=== PATIENT | male | born 1980 | race Caucasian/White ===

== ENCOUNTER 2017-09-13 10:54 | Inpatient (IN) ==
--- NOTE | 2017-09-13 10:34 | Emergency Department Note ---
Disposition Clinical Impression: GI bleed Qualifiers: GI bleed type/associated pathology: unspecified gastrointestinal hemorrhage type Qualified Code(s): K92.2 - Gastrointestinal hemorrhage, unspecified Hematemesis Qualifiers: Nausea presence: with nausea Qualified Code(s): K92.0 - Hematemesis Disposition: Admitted As Inpatient Condition: Fair Time of Disposition: 11:26 GI Bleed HPI - General Chief complaint: ED GI Bleed Stated complaint: vomiting blood, dizzy, black stool Source: patient, family, EMS Mode of arrival: EMS Nursing Notes Reviewed: Yes Vital Signs Reviewed: Yes - History of Present Illness HPI Narrative: 37-year-old male arrives to the emergency department by EMS for evaluation of blood streaked emesis 3 episodes since yesterday evening. The patient's states that the patient called her at work because he was feeling ill. She states that she arrived to the house to find him lying on the bathroom floor. She states she helped him up to the toilet, and went to get him some clothes. When she returned, the patient was again on the floor. The patient complains of being extremely diaphoretic, epigastric abdominal pain, nausea, and intermittent episodes of substernal/epigastric pain/pressure. His states that he had a Logan fundoplication performed 2 months ago for a hiatal hernia repair. She states that he has had follow-up regarding this and has been told that "everything is going fine". The patient's states that he also had an ablation performed on August 31 for an ablation of varices. He denies any cough or hemoptysis. Pt Subjective Complaint: blood streaked emesis Onset (ago): day(s) (Since yesterday) Number of episodes: 3 Consistency: intermittent Severity: moderate Improves with: nothing Worsens with: nothing Associated symptoms: Reports: abdominal pain, nausea, vomiting, chills, malaise - Related Data Home Medications Medication Instructions Recorded Confirmed Aspirin 81 mg PO DAILY 09/10/16 09/13/17 Ibuprofen [Motrin] 200 mg PO Q6HR PRN 09/10/16 09/13/17 Omeprazole [PriLOSEC] 40 mg PO DAILY 09/10/16 09/13/17 Ranitidine HCl [Acid Advanced Registered Nurse] 150 mg PO HS 09/10/16 09/13/17 Acetaminophen [Tylenol] 1,000 mg PO Q6HR PRN 10/27/16 09/13/17 Ascorbate Calcium [Vitamin C] 500 mg PO DAILY 10/27/16 09/13/17 Atorvastatin [Lipitor] 40 mg PO HS 10/27/16 09/13/17 Metformin HCl [Metformin HCl ER] 1,000 mg PO DAILY 10/27/16 09/13/17 Dulaglutide [Trulicity] 0.75 mg SQ WE 06/24/17 09/13/17 Empagliflozin [Jardiance] 10 mg PO DAILY 06/24/17 09/13/17 Fenofibrate Nanocrystallized 145 mg PO DAILY 06/24/17 09/13/17 [Tricor] Allergies Allergy/AdvReac Type Severity Reaction Status Date / Time anesthesia - unsure which one AdvReac Vomiting Uncoded 06/17/17 08:20 All systems ED: reviewed and negative except as stated. Constitutional: Reports: as per HPI, chills. Denies: fever, weakness, weight change Eyes: Denies: eye pain, eye discharge, vision change ENT ED: Denies: ear pain, throat pain, dental pain, hearing loss, epistaxis, congestion, dysphagia Cardiovascular: Reports: as per HPI, chest pain. Denies: palpitations, dyspnea on exertion, edema, syncope Respiratory: Denies: cough, dyspnea, wheezes, hemoptysis, stridor Gastrointestinal: Reports: as per HPI, abdominal pain, nausea, vomiting, hematemesis. Denies: diarrhea, constipation, melena, hematochezia Genitourinary: Denies: urgency, dysuria, frequency, hematuria Musculoskeletal: Denies: back pain, neck pain, arthralgia, myalgia Integumentary: Denies: rash, abrasion, lesions Neurological: Denies: headache, weakness, numbness, paresthesias, confusion, abnormal gait, vertigo Psychiatric: Denies: anxiety, depression, suicidal thoughts, homicidal thoughts , auditory hallucinations, visual hallucinations Endocrine: Denies: fatigue Hematological/Lymphatic: Denies: easy bleeding, easy bruising Allergic/Immunologic: Denies: facial swelling, urticaria Past Medical History - Past Medical History Attestation: Yes The following information was validated with the patient. Source: patient, nursing notes reviewed Medical history: Reports: diabetes, hyperlipidemia Surgical history: Reports: other Psychiatric history: Reports: no psych history - Social History Smoking Status: Never smoker Smokeless Tobacco Status: No Alcohol use: Reports: none Drug use: Reports: none Physical Exam - General General appearance: other (Appears ill) - Head Head exam: atraumatic, normocephalic, normal inspection - Eye Eye exam: Present: normal appearance, PERRL, EOMI. Absent: nystagmus - ENT ENT exam: mucous membranes moist, mucous membranes dry - Expanded ENT Exam Mouth exam: Present: other (Dried blood noticed of the patient's lips.) - Neck Neck exam: Present: normal inspection, full ROM, trachea midline - Chest Chest inspection: Present: normal inspection, symmetric chest wall rise - Respiratory Respiratory exam: Present: normal lung sounds bilaterally. Absent: respiratory distress, wheezes, stridor, accessory muscle use, prolonged expiratory phase - Cardiovascular Cardiovascular exam: Present: normal rhythm, tachycardia, normal heart sounds - Abdominal Exam Abdominal exam: Present: soft, tenderness, normal bowel sounds Abdominal tenderness: Present: LUQ, epigastrium, moderate - Extremities Exam Extremities exam: Present: normal inspection, full ROM. Absent: tenderness, pedal edema - Neurological Exam Neurological exam: Present: alert, oriented X3 - Psychiatric Psychiatric exam: Present: normal affect, normal mood - Skin Skin exam: Present: intact, normal color, diaphoresis, other (Cool) Course Course Narrative: I have discussed this patient's case with Dr. Banks. Dr. Banks has had a [id number] evaluation with the patient. We have placed a 9-[place] Cordis single-lumen catheter for resuscitative purposes. We will begin aggressive fluid hydration, laboratory results are pending. We will obtain a CT angio of the chest and abdomen. Protonix drip and octreotide have been ordered. The patient will be sent to CAT scan for a CT angiogram of the chest and abdomen /pelvis. Laboratory results, gastroenterology will see the patient. Dr. Banks has had a discussion with the garage supervisor and hospitalist on- call. The patient will be taken for endoscopy and probable variceal banding and then will be admitted to the hospitalist service with gastroenterology consult. 1145: Dr. Latham, garage supervisor early childhood education coordinator has evaluated the patient in the emergency department. He states that he will perform an endoscopy on the patient in the intensive care unit. He asked that the patient be admitted to the roofer vinyl coating care. Dr. Acevedo has been notified of this. I will contact the roofer vinyl coating on-call. 1154: I spoken with Dr. Rucker, roofer vinyl coating early childhood education coordinator. Dr. Rucker accepts the patient for admission to the roofer vinyl coating service. He recommends Rocephin 1 g twice a day be given IV piggyback. Vital Signs Temperature 97.4 F L 09/13/17 10:23 Pulse Rate 126 09/13/17 10:23 Respiratory Rate 20 09/13/17 10:23 Blood Pressure 88/60 09/13/17 10:23 O2 Sat by Pulse Oximetry 96 09/13/17 10:23 Temperature 99.5 F 09/13/17 18:09 Pulse Rate 112 09/13/17 18:09 Respiratory Rate 16 09/13/17 18:09 Blood Pressure 92/67 09/13/17 18:09 O2 Sat by Pulse Oximetry 99 09/13/17 18:00 Oxygen Delivery Oxygen Delivery Nasal Cannula Procedures - Central Line Placement Right Femoral Central Line Inserted*: Yes Central Line Catheter Replacement*: No Central Line Insertion: emergent Consent Obtained: verbal consent Procedural Pause: verify patient name and date of Patient Placed on Monitor/Pulse Ox: Yes During the Procedure: clinician is wearing sterile gloves, cap, mask,& gown during insertion, sterile field and sterile technique are maintained Central Line Prep: Chlorhexidine scrub Local Anesthetic: lidocaine 1% Amount of anesthesia used (mL): 5 Ultrasound Used for Placement: No Central Line Lumen Inserted: single Post Procedure: sutured in place, good blood return, all ports aspirated, flushed, capped, sterile dressing applied, guide wire removed and visualized, dressing is dated Patient Tolerated Procedure: well Complications: none GI Bleed - Medical Records Medical records reviewed: Yes I reviewed the patient's medical records. - Lab Data Lab results reviewed: Yes I reviewed the patient's lab results. Result diagrams: 09/13/17 14:35 09/13/17 14:35 Lab Results 09/13/17 09/13/17 09/13/17 Range/Units 10:37 11:04 11:04 WBC (4.3-11.1) K/mcL RBC (4.19-5.50) M/mcL Hgb (12.9-16.9) g/dL Hct (37.5-50.1) % MCV (83.0-100.0) fL MCH (28.0-33.3) pg MCHC (31.6-35.5) g/dL RDW (11.5-14.5) % Plt Count (140-400) K/mcL MPV (9.4-12.4) fL Seg Neutrophils % % Lymphocytes % % Monocytes % % Neutrophils # (1.6-8.9) K/mcL Lymphocytes # (0.6-4.6) K/mcL Monocytes # (0.0-1.3) K/mcL PT 13.2 H (9.4-12.1) Seconds INR 1.2 APTT 25.7 L (26.0-36.0) Seconds Sodium 139 (136-145) mEq/L Potassium 4.8 H (3.5-4.5) mEq/L Chloride 108 (98-109) mEq/L Carbon Dioxide 18 L (19-29) mEq/L BUN 38 H (8-26) mg/dL Creatinine 1.22 (0.72-1.25) mg/dL Est GFR ( Amer) > 60 (> 60) Est GFR (Non-Af Amer) > 60 (> 60) BUN/Creatinine Ratio 31 H (6-26) Glucose 301 H (70-99) mg/dL POC Glucose 247 H (58-89) Calculated Osmolality 308 H (280-300) Lactic Acid (0.5-2.2) mmol/L Calcium 8.5 L (8.6-10.8) mg/dL Total Bilirubin 0.3 (0.2-1.2) mg/dL AST 11 (5-34) Units/L ALT 15 (0-55) Units/L Alkaline Phosphatase 54 (38-126) Units/L Troponin I (0-0.03) ng/mL Serum Total Protein 5.6 L (6.0-8.3) g/dL Albumin 3.0 L (3.5-5.0) g/dL Globulin 2.6 (2.4-3.5) g/dL Albumin/Globulin Ratio 1.2 (1.1-2.2) Lipase < 10 (8-78) Units/L Blood Type Antibody Screen Crossmatch 09/13/17 09/13/17 09/13/17 Range/Units 11:04 11:04 11:04 WBC (4.3-11.1) K/mcL RBC (4.19-5.50) M/mcL Hgb (12.9-16.9) g/dL Hct (37.5-50.1) % MCV (83.0-100.0) fL MCH (28.0-33.3) pg MCHC (31.6-35.5) g/dL RDW (11.5-14.5) % Plt Count (140-400) K/mcL MPV (9.4-12.4) fL Seg Neutrophils % % Lymphocytes % % Monocytes % % Neutrophils # (1.6-8.9) K/mcL Lymphocytes # (0.6-4.6) K/mcL Monocytes # (0.0-1.3) K/mcL PT (9.4-12.1) Seconds INR APTT (26.0-36.0) Seconds Sodium (136-145) mEq/L Potassium (3.5-4.5) mEq/L Chloride (98-109) mEq/L Carbon Dioxide (19-29) mEq/L BUN (8-26) mg/dL Creatinine (0.72-1.25) mg/dL Est GFR ( Amer) (> 60) Est GFR (Non-Af Amer) (> 60) BUN/Creatinine Ratio (6-26) Glucose (70-99) mg/dL POC Glucose (58-89) Calculated Osmolality (280-300) Lactic Acid 4.6 H* (0.5-2.2) mmol/L Calcium (8.6-10.8) mg/dL Total Bilirubin (0.2-1.2) mg/dL AST (5-34) Units/L ALT (0-55) Units/L Alkaline Phosphatase (38-126) Units/L Troponin I 0.01 (0-0.03) ng/mL Serum Total Protein (6.0-8.3) g/dL Albumin (3.5-5.0) g/dL Globulin (2.4-3.5) g/dL Albumin/Globulin Ratio (1.1-2.2) Lipase (8-78) Units/L Blood Type O POSITIVE Antibody Screen NEGATIVE Crossmatch See Detail 09/13/17 Range/Units 11:04 WBC 24.1 H (4.3-11.1) K/mcL RBC 3.99 L (4.19-5.50) M/mcL Hgb 10.5 L (12.9-16.9) g/dL Hct 32.3 L (37.5-50.1) % MCV 81.0 L (83.0-100.0) fL MCH 26.3 L (28.0-33.3) pg MCHC 32.5 (31.6-35.5) g/dL RDW 14.1 (11.5-14.5) % Plt Count 372 (140-400) K/mcL MPV 10.7 (9.4-12.4) fL Seg Neutrophils % 90.0 % Lymphocytes % 4.0 % Monocytes % 6.0 % Neutrophils # 21.7 H (1.6-8.9) K/mcL Lymphocytes # 1.0 (0.6-4.6) K/mcL Monocytes # 1.5 H (0.0-1.3) K/mcL PT (9.4-12.1) Seconds INR APTT (26.0-36.0) Seconds Sodium (136-145) mEq/L Potassium (3.5-4.5) mEq/L Chloride (98-109) mEq/L Carbon Dioxide (19-29) mEq/L BUN (8-26) mg/dL Creatinine (0.72-1.25) mg/dL Est GFR ( Amer) (> 60) Est GFR (Non-Af Amer) (> 60) BUN/Creatinine Ratio (6-26) Glucose (70-99) mg/dL POC Glucose (58-89) Calculated Osmolality (280-300) Lactic Acid (0.5-2.2) mmol/L Calcium (8.6-10.8) mg/dL Total Bilirubin (0.2-1.2) mg/dL AST (5-34) Units/L ALT (0-55) Units/L Alkaline Phosphatase (38-126) Units/L Troponin I (0-0.03) ng/mL Serum Total Protein (6.0-8.3) g/dL Albumin (3.5-5.0) g/dL Globulin (2.4-3.5) g/dL Albumin/Globulin Ratio (1.1-2.2) Lipase (8-78) Units/L Blood Type Antibody Screen Crossmatch Critical Care Time Critical Care Time: Yes Total Critical Care Time: 60 Attestation: Critical care performed: Time is exclusive of separately billable procedures. Time includes: direct patient care, patient reassessment, coordination of patient care, interpretation of data (laboratory data, radiology data, and respiratory data), review of patient's medical records, medical consultation and documentation of patient care. Procedures included in critical care time: Procedures excluded from critical care time: Attestation Statement - Attestation Attestation: I, uDstin Banks DO have provided [id number] time during the care of this patient. Detailed review the presentation, symptoms, medical history were discussed and reviewed with the mid-level provider Soto Casarez PA-C/SENIOR TECHNICAL ARCHITECT. Medical intervention labs and imaging studies were reviewed in detail. See full documentation of physical exam and course of care in the mid-level provider's note. I agree with the determined course of care, medical intervention and disposition put forth by the mid-level provider. See below documentation for changes or alterations in documentation. 37-year-old male presents to emergency room with acute onset of hematemesis prior to coming in. Initial vital signs were concerning and I was called to the room. Patient was tachycardic in the 130s with a blood pressure of 70/50. Initial concern with hematemesis as well as significant abdominal pain much for possible aortic aneurysm, aortic dissection, ruptured aneurysm, bleeding esophageal varices or ulcer. Immediate bedside ultrasounds completed showing no free fluid in the abdomen and normal caliber appearing aorta. Patient has no history of aneurysm or dissection. IV attempts were made by nursing staff without any success then emergently I decided to place a large-bore resuscitation line in the right femoral vein. No complications were noted. Good blood return was reviewed. 2 L of fluid were infused immediately. Patient had large volume hematemesis at home. Patient had 2 units of O- blood were ordered out of the emergency room to be transfused. Emergent CT angiography of the chest and abdomen ordered for confirmation of fistula considering the patient's recent abdominal surgical procedures as well as ablation of esophageal varices and bleeding within the last month to 2 months. Patient was in consult with the on-call garage supervisor Dr. Latham. However the patient the bedside after CT is negative and hemoglobin drop 5 mg from his previous evaluation. Recommended blood transfusion the patient to go to the operative suite. Endoscopy and banding or ablation procedure. Patient CT imaging of the abdomen was reviewed in the record shows to be an active blush at the base of the esophageal junction of the gastrium. Patient has been hemodynamically stable after 2 units of fluid and 2 units of blood were transfused. Resuscitative measures were placed. Critical care established this patient 60 minutes or greater secondary to blood transfusion, resuscitation , emergent consultation in the emergency room. Patient otherwise had stabilization of medical issues. In the emergency room prior to transfer over to the endoscopy suite for evaluation. Patient will be admitted to the ICU for definitive management. See detailed documentation of physical exam, medical intervention, medical decision-making and disposition in the mid-level provider' s note. Consultations were placed. Patient is potentially critically ill secondary to the bleed as well as hemodynamics. Resuscitative measures established and volume resuscitation completed. The management to be completed by the garage supervisor in the ICU attending
[~2017-09-13 10:54] MED LIST: 0.9 % Sodium Chloride 1,000 ML IVC ONE; 0.9 % Sodium Chloride 2,000 ML ONE; Ondansetron 4 MG/2 ML VIAL ONE
[2017-09-13] MEDS ORDERED: 0.9 % Sodium Chloride 1,000 ML IVC ONE (10:58)
[2017-09-13] MEDS ORDERED: Ondansetron 4 MG/2 ML VIAL IVP ONE (10:58)
[2017-09-13] MEDS ORDERED: Pantoprazole 80 MG in 0.9 % Sodium Chloride 50 ML IVPB ONE (11:03)
[2017-09-13] MEDS ORDERED: OCTREOTIDE 200 MCG/ML IVP ONE ×2 (11:03→15:30)
[2017-09-13] MEDS ORDERED: Pantoprazole 40 MG in 0.9 % Sodium Chloride Mini Bag 100 ML IVC SCH (11:15)
[2017-09-13 11:33] LABS: INR 1.2; Prothrombin Time 13.2 Seconds (9.4-12.1)
[2017-09-13 11:36] LABS: Activated Partial Thrombo Time 25.7 Seconds (26.0-36.0)
[2017-09-13 11:37] LABS: Alanine Aminotransferase 15 Units/L (0-55); Albumin/Globulin Ratio 1.2 (1.1-2.2); Alkaline Phosphatase 54 Units/L (38-126); Aspartate Amino Transferase 11 Units/L (5-34); BUN/Creatinine Ratio 31 (6-26); Bilirubin,Total 0.3 mg/dL (0.2-1.2); Blood Urea Nitrogen 38 mg/dL (8-26); Calcium 8.5 mg/dL (8.6-10.8); Carbon Dioxide 18 mEq/L (19-29); Chloride 108 mEq/L (98-109); Globulin 2.6 g/dL (2.4-3.5); Glucose 301 mg/dL (70-99); Osmolality,Calculated 308 (280-300); Potassium 4.8 mEq/L (3.5-4.5); Sodium 139 mEq/L (136-145); Total Protein 5.6 g/dL (6.0-8.3); eGFR For African Americans > 60 (> 60); eGFR For Non-African Americans > 60 (> 60)
[2017-09-13 11:38] LABS: Lipase < 10 Units/L (8-78)
[2017-09-13 11:39] LABS: Hematocrit 32.3 % (37.5-50.1); Hemoglobin 10.5 g/dL (12.9-16.9); Mean Corpuscular HGB Conc 32.5 g/dL (31.6-35.5); Mean Corpuscular Hemoglobin 26.3 pg (28.0-33.3); Mean Platelet Volume 10.7 fL (9.4-12.4); Platelet Count 372 K/mcL (140-400); Red Blood Count 3.99 M/mcL (4.19-5.50); Red Cell Distribution Width 14.1 % (11.5-14.5)
[2017-09-13] MEDS ORDERED: 0.9 % Sodium Chloride 250 ML ONE ×2 (11:40→15:38)
[2017-09-13] MEDS ORDERED: cefTRIAXone 1,000 MG in Water for inj. (sterile) 10 ML IVP SCH (12:00)
[2017-09-13] MEDS: Pantoprazole 80 MG in 0.9 % Sodium Chloride 250 ML IVC SCH ×2 (12:02→22:35)
[2017-09-13 12:06] LABS: Monocytes # 1.5 K/mcL (0.0-1.3); Neutrophils # 21.7 K/mcL (1.6-8.9)
--- NOTE | 2017-09-13 12:06 | Gastroenterology Consult Note ---
<[facility] - Last Filed: 09/13/17 11:50> Date of Encounter: 09/13/17 Time of Encounter: 11:45 - Assessment and plan (1) Hematemesis Current Visit: Yes Status: Acute Assessment and plan: Pt is status post RFA for Barretts esophagus approx 1 month ago. He presents with vomiting bright red blood with clots. He is hypotensive, and tachycardic. Hgb is 10 was 15 07/24. He is being transfused PRBCs. Will be transferred to ICU and emergent EGD done for bleeding control. He may decompensate further and prognosis is guarded. CTA of chest was done in ER. 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 - Time Spent With Patient Total time spent is greater than 50% in coordination of care (as documented) at patient's floor/unit and/or counseling patient: GI History of Present Illness - Data of Consult Patient: known to practice within the last 3 years Consult date: 09/13/17 Requesting Physician: Montez Lamb MD - Consult Narrative Reason for consult: GI bleed History of present illness: Mr. Banks is a 37 year old male who presented with vomiting blood. He has a past medical history of DM, hiatal hernia, Pedraza's esophagus, hyperlipidemia and GERD. He is status post logan fundoplication and hiatal hernia repair in and RFA 08/23 for Pedraza's esophagus at [facility]. He reports he felt fine yesterday, had a Big Mac for dinner. This morninghe started having epigastric pain, nausea, diarphoresis and vomiting bright red blood mixed with blood clots this morning. He presented to ER and was found to be hypotensive and tachycardic. He denies ETOH or drug use. He has a long history of GERD and has been on PPI. Colonoscopy: EGD: 08/23 [facility] NSAIDS/ASA: 81 mg Anticoagulants: none Past Med Surg Social Fam HX - Past Medical History Medical history: diabetes, hyperlipidemia Psychiatric history: no psych history - Past Surgical History Surgical History: other - Social History Smoking Status: Never smoker Smokeless Tobacco Status: No Alcohol use: none Drug use: none Review of Systems: GI: as per [place] GENERAL: denies fever, has some chills EYES: denies yellow discoloration ENT: denies pain with swallowing or difficulty swallowing CARDIO: denies chest pain, palpitations RESP: No Shortness of breath with exertion : denies change in color of urine NEURO: denies any weakness HEME: Denies any bruising MS: denies joint pain, joint swelling or back pain. DERM: denies rash or itching PSYCH: Denies history of anxiety or depression - Constitutional Vitals: Temp Pulse Resp BP Pulse Ox 97.4 F L 124 18 105/62 100 09/13/17 10:23 09/13/17 11:15 09/13/17 11:15 09/13/17 11:15 09/13/17 11:15 Exam: CONSTITUTIONAL:~lethargic, no acute distress.~HEAD:~normocephalic.~EYES:~no jaundice.~NECK:~no obvious swelling.~HEART:~regular rate and rhythm, no murmurs. ~LUNGS:~bilateral good air entry.~ABDOMEN:~non distended, soft, tender epigastrum, no masses palpable, no organomegaly.~RECTAL EXAM:~Deferred.~ EXTREMITIES:~no clubbing, cyanosis or edema.~SKIN:~pallor and diaphoresis noted , no stigmata of chronic liver disease.~NEUROLOGIC:~no obvious focal defect.~~~~ Results - Labs CBC & Chem 7: 09/13/17 11:04 09/13/17 11:04 Labs: Last Result Calcium 8.5 mg/dL (8.6-10.8) L 09/13/17 11:04 Troponin I 0.01 ng/mL (0-0.03) 09/13/17 11:04 Entire Visit Hgb 10.5 g/dL (12.9-16.9) L 09/13/17 11:04 Hct 32.3 % (37.5-50.1) L 09/13/17 11:04 PT 13.2 Seconds (9.4-12.1) H 09/13/17 11:04 Total Bilirubin 0.3 mg/dL (0.2-1.2) 09/13/17 11:04 AST 11 Units/L (5-34) 09/13/17 11:04 ALT 15 Units/L (0-55) 09/13/17 11:04 Lipase < 10 Units/L (8-78) 09/13/17 11:04 - ABG ABG results: PT/INR, D-dimer PT 13.2 Seconds (9.4-12.1) H 09/13/17 11:04 Consult Discharge Plan - Plan Referrals: Anastacio Lamb DO [Primary Care Provider] - <Jason Latham - Last Filed: 09/13/17 12:51> Date of Encounter: 09/13/17 - Time Spent With Patient Total time spent is greater than 50% in coordination of care (as documented) at patient's floor/unit and/or counseling patient: GI History of Present Illness - Data of Consult Requesting Physician: Montez Lamb MD - Consult Narrative History of present illness: Mr. Banks is a 37 year old male - Constitutional Vitals: Temp Pulse Resp BP Pulse Ox 97.4 F L 120 18 106/72 100 09/13/17 11:43 09/13/17 11:43 09/13/17 11:43 09/13/17 11:43 09/13/17 11:15 Results - Labs CBC & Chem 7: 09/13/17 11:04 09/13/17 11:04 Labs: Last Result Calcium 8.5 mg/dL (8.6-10.8) L 09/13/17 11:04 Troponin I 0.01 ng/mL (0-0.03) 09/13/17 11:04 Entire Visit Hgb 10.5 g/dL (12.9-16.9) L 09/13/17 11:04 Hct 32.3 % (37.5-50.1) L 09/13/17 11:04 PT 13.2 Seconds (9.4-12.1) H 09/13/17 11:04 Total Bilirubin 0.3 mg/dL (0.2-1.2) 09/13/17 11:04 AST 11 Units/L (5-34) 09/13/17 11:04 ALT 15 Units/L (0-55) 09/13/17 11:04 Lipase < 10 Units/L (8-78) 09/13/17 11:04 - ABG ABG results: PT/INR, D-dimer PT 13.2 Seconds (9.4-12.1) H 09/13/17 11:04 - Attending Attestation Mr Banks has Pedraza's esophagus and underwent RFA twice first 10/22/2017 and other middle of August at [facility] in [place]. He did fine until this morning (ate a Big Mac last night) when he woke up with chills and sweats and vomited a large amount of bright red blood with clots earlier this morning. Has been weak and dizzy and presents to the ED. Hemoglobin 10 today (15 a few weeks ago). Patient complained of chest and abdominal pain - nonspecific. Has not had melena yet. Patient was tachycardic and light headed in ED when I examined him. Recommend Emergent EGD today and ICU monitoring. Agree with 2 units of packed cells. Further recommendation post EGD. S/P Logan Fundoplication past year. Agree with above. Have personally interviewed and examined Mr Banks and reviewed his labs and CT scan
[2017-09-13] MEDS ORDERED: Tetracaine/Benzocaine/Butamben 200MG/SPRAY (100SPY/BOT) MM ONE (12:37)
[2017-09-13] MEDS ORDERED: *HR* Phenylephrine 10 MG/ML VIAL ONE (12:45)
[2017-09-13] MEDS ORDERED: Acetaminophen IV 0 MG/0 ML INFUS..BTL ONE (12:46)
[2017-09-13] MEDS ORDERED: Metoclopramide 10 MG/2 ML VIAL ONE (12:46)
[2017-09-13] MEDS ORDERED: Famotidine 20 MG/2 ML VIAL ONE (12:47)
[2017-09-13] MEDS ORDERED: *HR* Propofol 200 MG/20 ML VIAL IVP ONE ×2 (12:48→13:24)
--- NOTE | 2017-09-13 12:51 | Anesthesia Evaluation PreOp ---
Date of Encounter: 09/13/17 Time of Encounter: 12:49 - Past History Planned Operation: Emergent EGD re: Hematemesis Cardiac History: Denies any Significant Hx, Hyperlipidemia (maintained on Atorvastatin) SAWDUST DRIER History: Denies Any Significant HX Other Medical History: Diabetes Type II (maintained on jardiance, Trulicity, Metformin), GERD (maintained on Omeprazole) Anesthesia History: No Prior Anesthetic Complications, Past Anesthesia (RFA[BarX ] re:Pedraza's esophagus at [facility] 2 weeks ago, [place] 06/2017) Alcohol Use: none Drug use: none Medications and Allergies Aspirin 81 mg PO DAILY 09/10/16 [History] Ibuprofen [Motrin] 200 mg PO Q6HR PRN 09/10/16 [History] Omeprazole [PriLOSEC] 40 mg PO DAILY 09/10/16 [History] Ranitidine HCl [Acid Audio Production Manager] 150 mg PO HS 09/10/16 [History] Acetaminophen [Tylenol] 1,000 mg PO Q6HR PRN 10/27/16 [History] Ascorbate Calcium [Vitamin C] 500 mg PO DAILY 10/27/16 [History] Atorvastatin [Lipitor] 40 mg PO HS 10/27/16 [History] Metformin HCl [Metformin HCl ER] 1,000 mg PO DAILY 10/27/16 [History] Dulaglutide [Trulicity] 0.75 mg SQ WE 06/24/17 [History] Empagliflozin [Jardiance] 10 mg PO DAILY 06/24/17 [History] Fenofibrate Nanocrystallized [Tricor] 145 mg PO DAILY 06/24/17 [History] 3 Allergy/AdvReac Type Severity Reaction Status Date / Time anesthesia - unsure which one AdvReac Vomiting Uncoded 06/17/17 08:20 - Meds/Allergy Pre-op Review Medications Reviewed: Yes Allergies Reviewed: Yes Beta Blockers on Current Med List: No Anesthesia Results - Labs 09/13/17 11:04 09/13/17 11:04 Laboratory Results WBC 24.1 K/mcL (4.3-11.1) H 09/13/17 11:04 RBC 3.99 M/mcL (4.19-5.50) L 09/13/17 11:04 Hgb 10.5 g/dL (12.9-16.9) L 09/13/17 11:04 Hct 32.3 % (37.5-50.1) L 09/13/17 11:04 MCV 81.0 fL (83.0-100.0) L 09/13/17 11:04 MCH 26.3 pg (28.0-33.3) L 09/13/17 11:04 MCHC 32.5 g/dL (31.6-35.5) 09/13/17 11:04 RDW 14.1 % (11.5-14.5) 09/13/17 11:04 Plt Count 372 K/mcL (140-400) 09/13/17 11:04 MPV 10.7 fL (9.4-12.4) 09/13/17 11:04 Seg Neutrophils % 90.0 % 09/13/17 11:04 Lymphocytes % 4.0 % 09/13/17 11:04 Monocytes % 6.0 % 09/13/17 11:04 Neutrophils # 21.7 K/mcL (1.6-8.9) H 09/13/17 11:04 Lymphocytes # 1.0 K/mcL (0.6-4.6) 09/13/17 11:04 Monocytes # 1.5 K/mcL (0.0-1.3) H 09/13/17 11:04 PT 13.2 Seconds (9.4-12.1) H 09/13/17 11:04 INR 1.2 09/13/17 11:04 APTT 25.7 Seconds (26.0-36.0) L 09/13/17 11:04 Sodium 139 mEq/L (136-145) 09/13/17 11:04 Potassium 4.8 mEq/L (3.5-4.5) H 09/13/17 11:04 Chloride 108 mEq/L (98-109) 09/13/17 11:04 Carbon Dioxide 18 mEq/L (19-29) L 09/13/17 11:04 BUN 38 mg/dL (8-26) H 09/13/17 11:04 Creatinine 1.22 mg/dL (0.72-1.25) 09/13/17 11:04 Est GFR ( Amer) > 60 (> 60) 09/13/17 11:04 Est GFR (Non-Af Amer) > 60 (> 60) 09/13/17 11:04 BUN/Creatinine Ratio 31 (6-26) H 09/13/17 11:04 Glucose 301 mg/dL (70-99) H 09/13/17 11:04 POC Glucose 247 (58-89) H 09/13/17 10:37 Calculated Osmolality 308 (280-300) H 09/13/17 11:04 Lactic Acid 4.6 mmol/L (0.5-2.2) H* 09/13/17 11:04 Calcium 8.5 mg/dL (8.6-10.8) L 09/13/17 11:04 Total Bilirubin 0.3 mg/dL (0.2-1.2) 09/13/17 11:04 AST 11 Units/L (5-34) 09/13/17 11:04 ALT 15 Units/L (0-55) 09/13/17 11:04 Alkaline Phosphatase 54 Units/L (38-126) 09/13/17 11:04 Troponin I 0.01 ng/mL (0-0.03) 09/13/17 11:04 Serum Total Protein 5.6 g/dL (6.0-8.3) L 09/13/17 11:04 Albumin 3.0 g/dL (3.5-5.0) L 09/13/17 11:04 Globulin 2.6 g/dL (2.4-3.5) 09/13/17 11:04 Albumin/Globulin Ratio 1.2 (1.1-2.2) 09/13/17 11:04 Lipase < 10 Units/L (8-78) 09/13/17 11:04 Blood Type O POSITIVE 09/13/17 11:04 Antibody Screen NEGATIVE 09/13/17 11:04 Crossmatch See Detail 09/13/17 11:04 Impressions Abdomen/Pelvis CTA 09/13/17 10:45 IMPRESSION: 1. No evidence of thoracic aortic dissection or aneurysm. 2. No evidence of pulmonary embolus to the level of the distal lobar branches. More distal pulmonary vessels are not adequately seen. 3. Patulous partially fluid-filled esophagus suggestive of esophageal dysmotility and/or reflux. 4. Distended gas/fluid-filled stomach. Possible causes include delayed gastric emptying and gastric outlet obstruction (no identifiable cause on this exam). 5. Hepatic steatosis. D/ / 09/13/2017 11:55:14 Daniel Méndez MD / tala Interpreting Provider: Daniel Méndez MD Chest CTA 09/13/17 10:45 IMPRESSION: 1. No evidence of thoracic aortic dissection or aneurysm. 2. No evidence of pulmonary embolus to the level of the distal lobar branches. More distal pulmonary vessels are not adequately seen. 3. Patulous partially fluid-filled esophagus suggestive of esophageal dysmotility and/or reflux. 4. Distended gas/fluid-filled stomach. Possible causes include delayed gastric emptying and gastric outlet obstruction (no identifiable cause on this exam). 5. Hepatic steatosis. D/ / 09/13/2017 11:55:14 Daniel Méndez MD / tala Interpreting Provider: Daniel Méndez MD - Imaging EKG: image reviewed Anesthesia Exam Vital Signs Temp Pulse Resp BP Pulse Ox 09/13/17 12:15 124 16 108/89 100 09/13/17 12:00 123 16 114/65 100 09/13/17 11:57 124 16 113/77 100 09/13/17 11:51 121 16 116/87 100 09/13/17 11:43 97.4 F L 120 18 106/72 09/13/17 11:15 124 18 105/62 100 09/13/17 11:00 119 18 109/67 100 09/13/17 10:52 122 20 94/60 100 09/13/17 10:45 123 20 78/54 100 09/13/17 10:33 121 20 71/41 96 09/13/17 10:24 93 09/13/17 10:23 97.4 F L 126 20 88/60 96 Intake and Output 09/12/17 09/13/17 09/13/17 23:59 07:59 15:59 Intake Total 1000 / 1000 Balance 1000 / 1000 Intake: Blood Product 1000 / 1000 Rbcs Leuko Poor As-1 Unit 500 / 500 [id number] Rbcs Leuko Poor As-1 Unit 500 / 500 [id number] Other: Weight 101.151 kg Patient Weight 09/13/17 23:59 Weight 101.151 kg Height: 1.8m Weight: [230#] 104kg NPO (# of Hours): 9a ice tea,Morning pills, NO solids - HEENT Pupil (Motor): Pupils equal, EOMI Mallampati: III Teeth: Normal Oral Opening: Greater than 3 - SAWDUST DRIER LOC: Oriented SAWDUST DRIER Motor: Normal RUE, Normal LUE, Normal RLE, Normal LLE, Normal Face SAWDUST DRIER Sensory: Normal: RUE, LUE, RLE, LLE, Face - Cardiac Murmur: None - Pulmonary Breath Sounds: bilateral Clear Respiratory Effort: Symmetrical Anesthesia Assess/Plan ASA Score: 3 Modified [place] Scale for Level of Consciousness: Cooperative, oriented, and tranquil Anesthetic Plan: General Monitoring Plan: Standard Monitors Recovery Plan: PACU Anes Supervising Prov Stmt: Pt seen/evaluated, R&B Discussed, questions answered and consent obtained. Elliot Lopez MD
[2017-09-13] MEDS ORDERED: *HR* FentaNYL (PF) 100 MCG/2 ML VIAL ONE (12:55)
[2017-09-13] MEDS ORDERED: *HR* Midazolam HCl 2 MG/2 ML VIAL ONE ×2 (12:55→13:33)
[2017-09-13] MEDS ORDERED: *HR* Vasopressin 20 UNIT/ML VIAL ONE (12:56)
[2017-09-13] MEDS ORDERED: Lidocaine -MPF 2% 2 ML VIAL ONE (12:56)
[2017-09-13] MEDS ORDERED: *HR* Rocuronium Bromide 50 MG/5 ML VIAL ONE (12:59)
[2017-09-13] MEDS ORDERED: 0.9 % Sodium Chloride 500 ML ONE (14:25)
[2017-09-13] MEDS ORDERED: Naloxone 0.4 MG/ML INJ IVP PRN (14:26)
[2017-09-13] MEDS ORDERED: Acetaminophen 325 MG TABLET PO PRN (14:26)
[2017-09-13 14:45] LABS: Hematocrit 34.1 % (37.5-50.1); Hemoglobin 11.2 g/dL (12.9-16.9); Mean Corpuscular HGB Conc 32.8 g/dL (31.6-35.5); Mean Corpuscular Volume 82.2 fL (83.0-100.0); Mean Platelet Volume 10.5 fL (9.4-12.4); Platelet Count 279 K/mcL (140-400); Red Blood Count 4.15 M/mcL (4.19-5.50); Red Cell Distribution Width 14.3 % (11.5-14.5)
[2017-09-13 14:48] LABS: Bilirubin,Urine Negative (Negative); Blood,Urine Negative (Negative); Clarity,Urine Clear (Clear); Color,Urine Yellow (Yellow); Glucose,Urine (UA) >=1000 mg/dL (Normal); Ketones,Urine Trace mg/dL (Negative); Leukocyte Esterase,Urine Negative (Negative); Nitrite,Urine Negative (Negative); Protein,Urine Negative (Neg-Trace); Specific Gravity,Urine > 1.030 (1.010-1.025); Urobilinogen,Urine Normal (Normal)
[2017-09-13] MEDS ORDERED: Ringers Solution, Lactated 1,000 ML ONE (14:52)
[2017-09-13] MEDS ORDERED: Lacri-Lube 3.5 GM TUBE BOTH EYES PRN (14:58)
[2017-09-13] MEDS: FentaNYL (PF) 1,000 MCG in 0.9 % Sodium Chloride 80 ML IVC SCH ×2 (15:00→23:37)
[2017-09-13 15:02] LABS: BUN/Creatinine Ratio 33 (6-26); Blood Urea Nitrogen 40 mg/dL (8-26); Calcium 7.9 mg/dL (8.6-10.8); Carbon Dioxide 19 mEq/L (19-29); Chloride 114 mEq/L (98-109); Glucose 132 mg/dL (70-99); Osmolality,Calculated 306 (280-300); Potassium 5.2 mEq/L (3.5-4.5); Sodium 142 mEq/L (136-145); eGFR For African Americans > 60 (> 60); eGFR For Non-African Americans > 60 (> 60)
--- NOTE | 2017-09-13 15:23 | Pulmonology History & Physical ---
Date of Encounter: 09/13/17 Time of Encounter: 15:19 Assessment and Plan (1) Acute blood loss anemia Current visit: Yes Status: Acute I spent 35min of Critical Care time with this patient. It involved decision making of high complexity to assess, manipulate, and support vital organ system failure and/or to prevent further life threatening deterioration of the patient' s condition. The time involved in the performance of separately reportable procedures was not counted toward critical care time. DIGITAL RESEARCH ANALYST: Deeply sedated for active gastrointestinal hemorrhage without sedation patient is noted to move all extremities without focal neurological deficit goal Jack 4 to 5 Pulm: Intubated for airway management with active gastritis and intestinal hemorrhages ABG pending from post intubation. Per SaO2 on monitor excellent oxygenation on 40% FiO2 which is encouraging continue ventilator bundle to prevent pneumonia. High risk for aspiration pneumonitis/pneumonia. Cards: Tachycardia related to the gastrointestinal hemorrhage troponin within normal limits. Mean Arterial pressure remains greater than 65 at this time FEN-GI: Acute gastrointestinal hemorrhage likely secondary to Pedraza's esophagus status post emergent endoscopy PPI infusion will be continued repeat endoscopy planned for tomorrow patient has adequate IV access including a large bore introducer in the femoral region. We will employ a restrictive transfusion protocol check CBC every 4 hours. Appreciate GI evaluation and recommendations Renal: No evidence of a KCI continue to monitor renal function daily replace electrolytes per protocol ID: Elevated white count likely secondary to SIRS possible aspiration of the CTA without clear evidence of focal opacity given elevated lactate and WBC would treat as possible severe sepsis although I think this is more related to acute gastrointestinal hemorrhage we started coverage for possible aspiration with Pip/tazobactam cultures have been obtained planned to de-escalate the next 24-48 hours. Heme/Onc: Acute blood loss anemia PRBC as a been transfused no evidence of coagulopathy continue to monitor every 4 hours mechanical DVT prophylaxis for now Endo: Glucose Monitored Integ/MSK: Skin Care per routine ICU Nursing Protocol to prevent ulcers. Lines: All lines examined without evidence of infection : Dispo: Remain in ICU for critical illness CODE: Full code was updated at bedside she is clearly upset with her 's current medical condition understandably and she was agitated that the endoscopist did not update her post procedure I did call the endoscopist myself who came to the bedside and answered all her questions we have been in communication since her has been admitted to the ICU. 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 HPI: Mr. Banks is a 37 year old male who presented to the ED today because of a large volume of bloody emesis prior to resuscitation. All history was obtained from the patient's chart the endoscopist and ED physician as patient is currently intubated I did attempt to discuss the case with the and she gave small bits of information but was quite upset at time of our discussion. 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 He is not on any form of anticoagulation from what I can gather. In the ED was noted to be tachycardic lactate was elevated to 4.5 hemoglobin was approximately 10 from baseline of 14-15 on prior records. He was given 2 units of O- packed red blood cell transfusion and crystalloid infusion after her placement of a Cordis introducer. He was also placed on a PPI infusion seen by gastroenterology and emergent endoscopy was performed after endotracheal intubation which is notable for large volume of blood in the stomach there was an adherent clot with stigmata of recent bleeding at the gastroesophageal junction (the area previous that had undergone RFA) which was injected with epinephrine. Patient was subsequently transferred to the ICU for ongoing management. Per record no history of alcohol abuse or previous history of varices. Past Med Surg Social Fam HX - Past Medical History Medical history: diabetes, hyperlipidemia Psychiatric history: no psych history - Past Surgical History Surgical History: other - Social History Smoking Status: Unknown if ever smoked Smokeless Tobacco Status: No Alcohol use: none Drug use: none Medications and Allergies Aspirin 81 mg PO DAILY 09/10/16 [History] Ibuprofen [Motrin] 200 mg PO Q6HR PRN 09/10/16 [History] Omeprazole [PriLOSEC] 40 mg PO DAILY 09/10/16 [History] Ranitidine HCl [Acid Plastics Fabricator And Assembler] 150 mg PO HS 09/10/16 [History] Acetaminophen [Tylenol] 1,000 mg PO Q6HR PRN 10/27/16 [History] Ascorbate Calcium [Vitamin C] 500 mg PO DAILY 10/27/16 [History] Atorvastatin [Lipitor] 40 mg PO HS 10/27/16 [History] Metformin HCl [Metformin HCl ER] 1,000 mg PO DAILY 10/27/16 [History] Dulaglutide [Trulicity] 0.75 mg SQ WE 06/24/17 [History] Empagliflozin [Jardiance] 10 mg PO DAILY 06/24/17 [History] Fenofibrate Nanocrystallized [Tricor] 145 mg PO DAILY 06/24/17 [History] 3 Allergy/AdvReac Type Severity Reaction Status Date / Time anesthesia - unsure which one AdvReac Vomiting Uncoded 06/17/17 08:20 All Systems: A 10-system review of systems was performed and is negative for pertinent findings except as documented above in the HPI. Physical Examination Vital Signs: Vital Signs, Last 4 Hours Temp Pulse Resp BP Pulse Ox 09/13/17 14:52 128 09/13/17 14:46 97.2 F L 126 11 143/82 100 General appearance: other (Intubated and sedated) Eyes: nonicteric ENT: other (Endotracheal tube noted) Neck: supple, no lymphadenopathy Effort: mildly labored Auscultation: bilateral: clear Cardiovascular: other (Rapid rate regular rhythm no murmur) Gastrointestinal: soft, non-tender, other (Mildly distended bowel sounds hypoactive) Integumentary: normal Extremities: no cyanosis, no edema, no clubbing Musculoskeletal: no deformities non-focal exam, pupils equal and round Results - Laboratory Findings CBC and BMP: 09/13/17 14:35 09/13/17 14:35 PT/INR, D-dimer PT 13.2 Seconds (9.4-12.1) H 09/13/17 11:04 Abnormal lab findings: Abnormal lab results WBC 24.3 K/mcL (4.3-11.1) H 09/13/17 14:35 RBC 4.15 M/mcL (4.19-5.50) L 09/13/17 14:35 Hgb 11.2 g/dL (12.9-16.9) L 09/13/17 14:35 Hct 34.1 % (37.5-50.1) L 09/13/17 14:35 MCV 82.2 fL (83.0-100.0) L 09/13/17 14:35 MCH 27.0 pg (28.0-33.3) L 09/13/17 14:35 Neutrophils # 21.7 K/mcL (1.6-8.9) H 09/13/17 11:04 Monocytes # 1.5 K/mcL (0.0-1.3) H 09/13/17 11:04 PT 13.2 Seconds (9.4-12.1) H 09/13/17 11:04 APTT 25.7 Seconds (26.0-36.0) L 09/13/17 11:04 Potassium 5.2 mEq/L (3.5-4.5) H 09/13/17 14:35 Chloride 114 mEq/L (98-109) H 09/13/17 14:35 BUN 40 mg/dL (8-26) H 09/13/17 14:35 BUN/Creatinine Ratio 33 (6-26) H 09/13/17 14:35 Glucose 132 mg/dL (70-99) H 09/13/17 14:35 POC Glucose 123 (58-89) H 09/13/17 14:14 Calculated Osmolality 306 (280-300) H 09/13/17 14:35 Lactic Acid 4.7 mmol/L (0.5-2.2) H* 09/13/17 14:35 Calcium 7.9 mg/dL (8.6-10.8) L 09/13/17 14:35 Serum Total Protein 5.6 g/dL (6.0-8.3) L 09/13/17 11:04 Albumin 3.0 g/dL (3.5-5.0) L 09/13/17 11:04 Ur Specific [place] > 1.030 (1.010-1.025) H 09/13/17 14:35 Urine Glucose (UA) >=1000 mg/dL (Normal) H 09/13/17 14:35 Urine Ketones Trace mg/dL (Negative) H 09/13/17 14:35 - Diagnostic Findings Chest x-ray: report reviewed, image reviewed CT scan - chest: report reviewed, image reviewed
[2017-09-13] MEDS ORDERED: *HR* Midazolam HCl 5 MG/5 ML VIAL IVP ONE (15:26)
[2017-09-13] MEDS: Lacri-Lube 3.5 GM TUBE BOTH EYES SCH ×2 (16:06→19:43)
[2017-09-13 16:12] LABS: ABG Base Excess -10 mEq/L (-2 to 3); ABG HCO3 18 mEq/L (21-27); ABG Oxygen Saturation 98 % (95-98); ABG PCO2 47 mmHg (35-45); ABG PO2 129 mmHg (85-104); ABG TCO2 20 mEq/L (20-26); Blood Gas Modality VC; Blood Gas PEEP 5 cm H2O; Blood Gas Respiration Rate 12; Blood Gas VT 500 cc
[2017-09-13] MEDS: Piperacillin/Tazobactam 3.375 GM in D5% in Water 50 ML IVPB SCH (16:35)
[2017-09-13 17:25] LABS: ABG Base Excess -6 mEq/L (-2 to 3); ABG HCO3 20 mEq/L (21-27); ABG Oxygen Saturation 99 % (95-98); ABG PCO2 43 mmHg (35-45); ABG PH 7.28 pH Units (7.32-7.45); ABG PO2 139 mmHg (85-104); ABG TCO2 22 mEq/L (20-26); Blood Gas Modality ASSIST CONTROL; Blood Gas PEEP 5 cm H2O; Blood Gas VT 550 cc
[2017-09-13] MEDS ORDERED: Ringers Solution, Lactated 1,000 ML IVC ONE (19:25)
[2017-09-13] MEDS: Chlorhexidine Rinse 15 ML MOUTHWASH MM SCH (19:43)
[2017-09-13 20:52] LABS: Hematocrit 35.3 % (37.5-50.1)
[2017-09-14] MEDS: Piperacillin/Tazobactam 3.375 GM in D5% in Water 50 ML IVPB SCH ×3 (00:12→16:36)
[2017-09-14] MEDS: Lacri-Lube 3.5 GM TUBE BOTH EYES SCH ×6 (00:13→21:19)
[2017-09-14 00:30] LABS: Hematocrit 33.9 % (37.5-50.1); Hemoglobin 11.7 g/dL (12.9-16.9)
[2017-09-14 04:22] LABS: BUN/Creatinine Ratio 40 (6-26); Blood Urea Nitrogen 41 mg/dL (8-26); Calcium 8.1 mg/dL (8.6-10.8); Carbon Dioxide 22 mEq/L (19-29); Chloride 113 mEq/L (98-109); Glucose 132 mg/dL (70-99); Osmolality,Calculated 306 (280-300); Potassium 3.7 mEq/L (3.5-4.5); Sodium 142 mEq/L (136-145); eGFR For African Americans > 60 (> 60); eGFR For Non-African Americans > 60 (> 60)
[2017-09-14 04:23] LABS: Basophils # 0.1 K/mcL (0.0-0.2); Basophils % 0.3 %; Eosinophils % 0.1 %; Hematocrit 32.7 % (37.5-50.1); Hemoglobin 11.3 g/dL (12.9-16.9); Immature Granulocytes % 0.3 % (0-4); Lymphocytes % 20.4 %; Mean Corpuscular HGB Conc 34.6 g/dL (31.6-35.5); Mean Corpuscular Volume 81.1 fL (83.0-100.0); Mean Platelet Volume 10.4 fL (9.4-12.4); Monocytes # 1.2 K/mcL (0.0-1.3); Neutrophils # 10.5 K/mcL (1.6-8.9); Platelet Count 198 K/mcL (140-400); Red Blood Count 4.03 M/mcL (4.19-5.50); Red Cell Distribution Width 14.5 % (11.5-14.5); Segmented Neutrophils % 70.9 %
[2017-09-14 04:36] LABS: ABG Base Excess 0 mEq/L (-2 to 3); ABG HCO3 25 mEq/L (21-27); ABG Oxygen Saturation 99 % (95-98); ABG PCO2 38 mmHg (35-45); ABG PH 7.42 pH Units (7.32-7.45); ABG PO2 154 mmHg (85-104); ABG TCO2 26 mEq/L (20-26); Blood Gas Modality VC; Blood Gas PEEP 5 cm H2O; Blood Gas Respiration Rate 24; Blood Gas VT 500 cc
[2017-09-14] MEDS: FentaNYL (PF) 1,000 MCG in 0.9 % Sodium Chloride 80 ML IVC SCH (08:09)
[2017-09-14] MEDS: Pantoprazole 80 MG in 0.9 % Sodium Chloride 250 ML IVC SCH ×2 (08:11→18:31)
--- NOTE | 2017-09-14 09:13 | Pulmonology Progress Note ---
<LoretoStevenson nava Desmond - Last Filed: 09/14/17 15:18> Date of Encounter: 09/14/17 Time of Encounter: 09:12 Assessment and Plan (1) Acute blood loss anemia Current Visit: Yes Status: Acute Secondary to lower esophageal ulceration. Hemoglobin has remained stable despite 4 units of packed red blood cells. Patient underwent urgent endoscopy yesterday that revealed a large amount of fresh blood. Patient had repeat endoscopy today that revealed no active bleeding or fresh blood but old blood within the stomach and ulcerations near the gastroesophageal junction. Bleeding appears to have stopped, we will continue to monitor. NG in place. (2) Gastrointestinal hemorrhage Current Visit: Yes Status: Acute Secondary to ulcerations at the GE junction in the setting of Pedraza's esophagus. Endoscopy is completed yesterday and today as above. Continue PPI drip for 24 hours, patient was intubated yesterday for airway protection has been successfully extubated today. Once able to swallow will start Carafate 4 times a day. Gastroenterology is following. Qualifiers: GI bleed type/associated pathology: gastrointestinal hemorrhage with hematemesis Qualified Code(s): K92.0 - Hematemesis (3) Pedraza's esophagus determined by biopsy Current Visit: Yes Status: Acute (4) Lactic acidosis Current Visit: Yes Status: Acute (5) SIRS (systemic inflammatory response syndrome) Current Visit: Yes Status: Acute Subjective Principal diagnosis: Acute GI bleed Interval history: Patient seen and examined at bedside. He is awake and follows commands. He nods his head yes to questions about abdominal pain. He is not appear to be in any acute distress. Objective PUL Vital signs: Last Vital Signs Temp 98.1 F 09/14/17 07:31 Pulse 92 09/14/17 08:13 Resp 18 09/14/17 08:00 BP 98/69 09/14/17 08:00 Pulse Ox 100 09/14/17 08:00 General appearance: no acute distress ENT: oropharynx moist Effort: normal Auscultation: bilateral: clear Cardiovascular: regular rate and rhythm Gastrointestinal: normoactive bowel sounds, soft, tender (Mild, diffuse), non- distended Extremities: no cyanosis, no edema, no clubbing normal mental status, non-focal exam Ventilator Settings Ventilator Settings: Ventilator Settings, Last 8 Hours Ventilator Mode VC+ Ventilator Mode VC+ Ventilator Mode VC+ Ventilator Mode VC+ Ventilator Mode VC+ Ventilator Mode VC+ Ventilator Mode VC+ Ventilator Mode VC+ Ventilator Mode VC+ Ventilator Mode VC+ Ventilator Mode VC+ Ventilator Tidal Volume 500 Setting Ventilator Tidal Volume 500 Setting Ventilator Tidal Volume 500 Setting Ventilator Tidal Volume 500 Setting Ventilator Tidal Volume 500 Setting Ventilator Tidal Volume 500 Setting Ventilator Tidal Volume 500 Setting Ventilator Tidal Volume 500 Setting Ventilator Tidal Volume 500 Setting Ventilator Tidal Volume 500 Setting Ventilator Tidal Volume 500 Setting Ventilator Respiratory Rate 18 Setting Ventilator Respiratory Rate 18 Setting Ventilator Respiratory Rate 24 Setting Ventilator Respiratory Rate 24 Setting Ventilator Respiratory Rate 24 Setting Ventilator Respiratory Rate 24 Setting Ventilator Respiratory Rate 24 Setting Ventilator Respiratory Rate 24 Setting Ventilator Respiratory Rate 24 Setting Ventilator Respiratory Rate 24 Setting Ventilator Respiratory Rate 24 Setting Actual Respiratory Rate 18 Actual Respiratory Rate 18 Actual Respiratory Rate 24 Actual Respiratory Rate 24 Actual Respiratory Rate 24 Positive End Expiratory 5 Pressure Positive End Expiratory 5 Pressure Positive End Expiratory 5 Pressure Positive End Expiratory 5 Pressure Positive End Expiratory 5 Pressure Positive End Expiratory 5 Pressure Positive End Expiratory 5 Pressure Positive End Expiratory 5 Pressure Positive End Expiratory 5 Pressure Positive End Expiratory 5 Pressure Positive End Expiratory 5 Pressure Peak Inspiratory Airway 22 Pressure Peak Inspiratory Airway 22 Pressure Peak Inspiratory Airway 21 Pressure Peak Inspiratory Airway 22 Pressure Peak Inspiratory Airway 22 Pressure Results - Laboratory Findings CBC and BMP: 09/14/17 04:02 09/14/17 04:02 ABG ABG pH 7.42 pH Units (7.32-7.45) 09/14/17 04:31 ABG pCO2 38 mmHg (35-45) 09/14/17 04:31 ABG pO2 154 mmHg (85-104) H 09/14/17 04:31 ABG O2 Saturation 99 % (95-98) H 09/14/17 04:31 PT/INR, D-dimer PT 13.2 Seconds (9.4-12.1) H 09/13/17 11:04 Abnormal lab findings: Abnormal lab results WBC 14.8 K/mcL (4.3-11.1) H 09/14/17 04:02 RBC 4.03 M/mcL (4.19-5.50) L 09/14/17 04:02 Hgb 11.3 g/dL (12.9-16.9) L 09/14/17 04:02 Hct 32.7 % (37.5-50.1) L 09/14/17 04:02 MCV 81.1 fL (83.0-100.0) L 09/14/17 04:02 Neutrophils # 10.5 K/mcL (1.6-8.9) H 09/14/17 04:02 PT 13.2 Seconds (9.4-12.1) H 09/13/17 11:04 APTT 25.7 Seconds (26.0-36.0) L 09/13/17 11:04 ABG pO2 154 mmHg (85-104) H 09/14/17 04:31 ABG O2 Saturation 99 % (95-98) H 09/14/17 04:31 Chloride 113 mEq/L (98-109) H 09/14/17 04:02 BUN 41 mg/dL (8-26) H 09/14/17 04:02 BUN/Creatinine Ratio 40 (6-26) H 09/14/17 04:02 Glucose 132 mg/dL (70-99) H 09/14/17 04:02 POC Glucose 119 (58-89) H 09/14/17 03:31 Calculated Osmolality 306 (280-300) H 09/14/17 04:02 Calcium 8.1 mg/dL (8.6-10.8) L 09/14/17 04:02 Serum Total Protein 5.6 g/dL (6.0-8.3) L 09/13/17 11:04 Albumin 3.0 g/dL (3.5-5.0) L 09/13/17 11:04 Ur Specific [place] > 1.030 (1.010-1.025) H 09/13/17 14:35 Urine Glucose (UA) >=1000 mg/dL (Normal) H 09/13/17 14:35 Urine Ketones Trace mg/dL (Negative) H 09/13/17 14:35 - Clinical Findings Intake & Output: Intake & Output 09/13/17 09/14/17 09/14/17 23:59 07:59 15:59 Intake Total 2710 / 2710 350 / 350 350 / 350 Output Total 2049 / 2049 700 / 700 Balance 660 / 660 -350 / -350 350 / 350 Weight 105.8 kg Consult Discharge Plan - Plan Referrals: Anastacio Lamb DO [Primary Care Provider] - <Everton Rucker - Last Filed: 09/14/17 15:29> Date of Encounter: 11/08/17 Assessment and Plan (1) Acute blood loss anemia Current Visit: Yes Status: Acute (2) Gastrointestinal hemorrhage Current Visit: Yes Status: Acute Qualifiers: GI bleed type/associated pathology: gastrointestinal hemorrhage with hematemesis Qualified Code(s): K92.0 - Hematemesis (3) Endotracheally intubated Current Visit: Yes Status: Acute (4) Lactic acidosis Current Visit: Yes Status: Acute (5) SIRS (systemic inflammatory response syndrome) Current Visit: Yes Status: Acute (6) Pedraza's esophagus determined by biopsy Current Visit: Yes Status: Acute Objective PUL Vital signs: Last Vital Signs Temp 97.4 F L 09/14/17 11:42 Pulse 101 09/14/17 15:00 Resp 13 09/14/17 15:00 BP 105/62 09/14/17 15:00 Pulse Ox 100 09/14/17 15:00 Ventilator Settings Ventilator Settings: Ventilator Settings, Last 8 Hours Ventilator Mode CPAP Ventilator Mode VC+ Ventilator Mode VC+ Ventilator Mode VC+ Ventilator Mode VC+ Ventilator Mode VC+ Ventilator Mode VC+ Ventilator Mode VC+ Ventilator Mode VC+ Ventilator Mode VC+ Ventilator Tidal Volume 500 Setting Ventilator Tidal Volume 500 Setting Ventilator Tidal Volume 500 Setting Ventilator Tidal Volume 500 Setting Ventilator Tidal Volume 500 Setting Ventilator Tidal Volume 500 Setting Ventilator Tidal Volume 500 Setting Ventilator Tidal Volume 500 Setting Ventilator Tidal Volume 500 Setting Ventilator Respiratory Rate 18 Setting Ventilator Respiratory Rate 18 Setting Ventilator Respiratory Rate 18 Setting Ventilator Respiratory Rate 18 Setting Ventilator Respiratory Rate 18 Setting Ventilator Respiratory Rate 18 Setting Ventilator Respiratory Rate 18 Setting Ventilator Respiratory Rate 18 Setting Ventilator Respiratory Rate 18 Setting Actual Respiratory Rate 13 Actual Respiratory Rate 18 Actual Respiratory Rate 18 Actual Respiratory Rate 18 Actual Respiratory Rate 18 Actual Respiratory Rate 18 Actual Respiratory Rate 18 Actual Respiratory Rate 18 Actual Respiratory Rate 18 Actual Respiratory Rate 18 Positive End Expiratory 5 Pressure Positive End Expiratory 5 Pressure Positive End Expiratory 5 Pressure Positive End Expiratory 5 Pressure Positive End Expiratory 5 Pressure Positive End Expiratory 5 Pressure Positive End Expiratory 5 Pressure Positive End Expiratory 5 Pressure Positive End Expiratory 5 Pressure Positive End Expiratory 5 Pressure Peak Inspiratory Airway 14 Pressure Peak Inspiratory Airway 21 Pressure Peak Inspiratory Airway 21 Pressure Peak Inspiratory Airway 21 Pressure Peak Inspiratory Airway 22 Pressure Peak Inspiratory Airway 22 Pressure Peak Inspiratory Airway 22 Pressure Results - Laboratory Findings CBC and BMP: 09/14/17 04:02 09/14/17 04:02 ABG ABG pH 7.42 pH Units (7.32-7.45) 09/14/17 04:31 ABG pCO2 38 mmHg (35-45) 09/14/17 04:31 ABG pO2 154 mmHg (85-104) H 09/14/17 04:31 ABG O2 Saturation 99 % (95-98) H 09/14/17 04:31 PT/INR, D-dimer PT 13.2 Seconds (9.4-12.1) H 09/13/17 11:04 Abnormal lab findings: Abnormal lab results WBC 14.8 K/mcL (4.3-11.1) H 09/14/17 04:02 RBC 4.03 M/mcL (4.19-5.50) L 09/14/17 04:02 Hgb 11.3 g/dL (12.9-16.9) L 09/14/17 04:02 Hct 32.7 % (37.5-50.1) L 09/14/17 04:02 MCV 81.1 fL (83.0-100.0) L 09/14/17 04:02 Neutrophils # 10.5 K/mcL (1.6-8.9) H 09/14/17 04:02 PT 13.2 Seconds (9.4-12.1) H 09/13/17 11:04 APTT 25.7 Seconds (26.0-36.0) L 09/13/17 11:04 ABG pO2 154 mmHg (85-104) H 09/14/17 04:31 ABG O2 Saturation 99 % (95-98) H 09/14/17 04:31 Chloride 113 mEq/L (98-109) H 09/14/17 04:02 BUN 41 mg/dL (8-26) H 09/14/17 04:02 BUN/Creatinine Ratio 40 (6-26) H 09/14/17 04:02 Glucose 132 mg/dL (70-99) H 09/14/17 04:02 POC Glucose 107 (58-89) H 09/14/17 11:21 Calculated Osmolality 306 (280-300) H 09/14/17 04:02 Calcium 8.1 mg/dL (8.6-10.8) L 09/14/17 04:02 Serum Total Protein 5.6 g/dL (6.0-8.3) L 09/13/17 11:04 Albumin 3.0 g/dL (3.5-5.0) L 09/13/17 11:04 Ur Specific [place] > 1.030 (1.010-1.025) H 09/13/17 14:35 Urine Glucose (UA) >=1000 mg/dL (Normal) H 09/13/17 14:35 Urine Ketones Trace mg/dL (Negative) H 09/13/17 14:35 - Clinical Findings Intake & Output: Intake & Output 09/13/17 09/14/17 09/14/17 23:59 07:59 15:59 Intake Total 2710 / 2710 350 / 350 500 / 500 Output Total 2049 / 2049 700 / 700 325 / 325 Balance 660 / 660 -350 / -350 175 / 175 Weight 105.8 kg - Attending Attestation I examined this patient and my medical decision-making was reviewed with the Resident Physician. I agree with the documented findings, disposition and treatment plan as described except to the extent set forth below. We independently had [id number] contact with the patient Patient seen and examined at bedside Labs, radiology, chart personally reviewed. Management was reviewed during multidisciplinary critical care rounds. CHAIR MAKER: Awake and alert following commands Pulm: Intubated for airway protection successfully liberated from the ventilator today Cards: Shock has resolved FEN-GI: Acute upper gastrointestinal hemorrhage resolves repeat scope today did not show any active bleeding appreciate GI recommendations Renal: Kidney function stable ID: Treating for possible aspiration white count has decreased was plan for antimicrobial de-escalation Heme/Onc: Mechanical DVT prophylaxis Endo: Glucose Monitored Integ/MSK: Skin Care per routine ICU Nursing Protocol to prevent ulcers. Lines: All lines examined without evidence of infection : Remove central venous catheter Dispo: Remain in ICU postextubation can likely be transferred to medical telemetry tomorrow CODE: Full code (NOK) updated at bedside
--- NOTE | 2017-09-14 10:53 | Gastroenterology Progress Note ---
Date of Encounter: 09/22/17 Time of Encounter: 10:45 - Assessment and plan (1) Hematemesis Status: Acute Assessment and plan: Pt is status post RFA for Barretts esophagus approx 1 month ago. He presents with vomiting bright red blood with clots. He was hypotensive, and tachycardic. Patient received 3 units PRBC transfusion yesterday secondary to significant bleeding. Hemoglobin was 12.0 and dropped to 11.3 likely secondary to stabilization. He is currently intubated and sedated as he remains stable without signs of excess bleeding since his EGD yesterday. - Patient currently intubated sedated, heart rate between 80 and 95, respiratory rate on mechanical ventilation of 18, blood pressure slightly hypotensive but is currently receiving propofol and is not requiring pressor support. EGD performed 09/13/2017 that demonstrated significant amount of burgundy blood down the lower third esophagus and stomach with clots with active welling up of blood in the distal esophagus. There was recognition of the RFA treated area with an attempt to wash out an adherent clot that was unsuccessful. He received 3 increments of 0.5 mL epinephrine injected into the margins of the clot. There was dark burgundy blood found in the gastric fundus and visualization of the stomach was difficult due to significant amount of blood and clots. Patient currently intubated and sedated with protected airway. He will undergo EGD this afternoon for further evaluation and potential treatment if necessary. Currently hemoglobin is stable and we will continue to monitor clinically. Plan: - EGD - Continue nothing by mouth - Moderate hemoglobin place of PRBCs if hemoglobin falls below 7.0 or signs of significant bleeding. Qualifiers: Nausea presence: with nausea Qualified Code(s): K92.0 - Hematemesis (2) Pedraza's esophagus determined by biopsy Status: Acute Assessment and plan: S/P RFA at [facility]. EGD performed yesterday with description above. - Time Spent With Patient Total time spent is greater than 50% in coordination of care (as documented) at patient's floor/unit and/or counseling patient: - Subjective Interval history: Mr. Banks 37 yo male seen and evaluated in the intensive care unit. He is currently intubated and sedated and unable to answer any questions at this time , no family is at bedside. He appears to be stable without signs of active bleeding. Patient course discussed with accountant cost and agreement for EGD for reevaluation this afternoon. - Constitutional Vitals: Temp Pulse Resp BP Pulse Ox 98.1 F 80 18 84/52 100 09/14/17 07:31 09/14/17 09:00 09/14/17 09:54 09/14/17 09:54 09/14/17 09:54 Exam: General: Intubated, sedated with endotracheal tube in place. HEENT: Normocephalic, atraumatic, oral mucosa moist, uvula midline, neck supple trachea midline no palpable lymphadenopathy, no thyromegaly. Chest: Symmetric bilateral correlating with respiratory effort, effort nonlabored. Cardiac: Regular rate and rhythm, positive S1 and S2. no bruits appreciated bilateral carotids, Radial pulses 2+ bilateral, posterior tibial and dorsal pedal pulses 2+ bilateral. Respiratory: Clear to auscultation all lung og Abdomen: Soft, nontender, positive bowel sounds, no palpable masses appreciated on examination Extremities: Symmetric bilateral Neurologic: No focal deficits appreciated on examination. Face symmetric, Results - Labs CBC & Chem 7: 09/16/17 02:37 09/16/17 02:37 Labs: Last Result Calcium 8.1 mg/dL (8.6-10.8) L 09/14/17 04:02 Troponin I 0.01 ng/mL (0-0.03) 09/13/17 11:04 Entire Visit Hgb 11.3 g/dL (12.9-16.9) L 09/14/17 04:02 Hct 32.7 % (37.5-50.1) L 09/14/17 04:02 PT 13.2 Seconds (9.4-12.1) H 09/13/17 11:04 Total Bilirubin 0.3 mg/dL (0.2-1.2) 09/13/17 11:04 AST 11 Units/L (5-34) 09/13/17 11:04 ALT 15 Units/L (0-55) 09/13/17 11:04 Lipase < 10 Units/L (8-78) 09/13/17 11:04 - ABG ABG results: ABG ABG pH 7.42 pH Units (7.32-7.45) 09/14/17 04:31 ABG pCO2 38 mmHg (35-45) 09/14/17 04:31 ABG pO2 154 mmHg (85-104) H 09/14/17 04:31 ABG O2 Saturation 99 % (95-98) H 09/14/17 04:31 PT/INR, D-dimer PT 13.2 Seconds (9.4-12.1) H 09/13/17 11:04 - Impressions Impressions Chest X-Ray 09/13/17 14:28 IMPRESSION: Stable cardiomegaly. Low lung volumes. Mild pulmonary vascular congestion. D/ / Mason Lawton MD / Mason Lawton MD Interpreting Provider: Mason Lawton MD Consult Discharge Plan - Plan Referrals: Jason Latham MD [Partnered Physician] - (2 weeks) Anastacio Lamb DO [Primary Care Provider] - 09/26/17 12:00 pm (1 week) Melinda Perez MD [Partnered Physician] - 10/03/17 2:40 am Prescriptions: Pantoprazole Sodium 40 mg PO BID #60 tablet. Sucralfamacarena [Carafate] 1 gm PO QIDA #1 oral.susp
[2017-09-14] MEDS: Chlorhexidine Rinse 15 ML MOUTHWASH MM SCH ×2 (11:09→21:19)
--- NOTE | 2017-09-14 16:31 | Electrocardiograph Report ---
[address] [address] Test Date: 2017-09-13 Pat Name: Blayne Banks Department: 103 Room: [facility] Gender: M Information Services Manager: PJ : 1980 Requested By: Soto Casarez Order Number: [id number] Reading MD: Vern Haskins MD Measurements Intervals [place] Rate: 120 P: 56 CA: 125 QRS: 56 QRSD: 90 T: 54 QT: 313 QTc: 385 Interpretive Statements SINUS TACHYCARDIA BASELINE ARTIFACT Electronically Signed On 09-14-2017 16:29:53 EST by Vern Haskins MD
[2017-09-14] MEDS ORDERED: Sucralfate 1 GM TABLET PO SCH (17:00)
[2017-09-14 17:14] LABS: Hematocrit 29.5 % (37.5-50.1)
[2017-09-15] MEDS: Piperacillin/Tazobactam 3.375 GM in D5% in Water 50 ML IVPB SCH (01:05)
[2017-09-15] MEDS: Pantoprazole 80 MG in 0.9 % Sodium Chloride 250 ML IVC SCH (04:26)
[2017-09-15 04:40] LABS: Basophils % 0.3 %; Eosinophils % 0.3 %; Hematocrit 29.9 % (37.5-50.1); Hemoglobin 9.9 g/dL (12.9-16.9); Immature Granulocytes % 0.4 % (0-4); Lymphocytes # 1.9 K/mcL (0.6-4.6); Mean Corpuscular HGB Conc 33.1 g/dL (31.6-35.5); Mean Corpuscular Hemoglobin 27.4 pg (28.0-33.3); Mean Corpuscular Volume 82.8 fL (83.0-100.0); Mean Platelet Volume 10.4 fL (9.4-12.4); Monocytes # 0.7 K/mcL (0.0-1.3); Monocytes % 6.4 %; Neutrophils # 8.2 K/mcL (1.6-8.9); Nucleated Red Blood Cells 0.2 /100 WBC (0); Platelet Count 170 K/mcL (140-400); Red Blood Count 3.61 M/mcL (4.19-5.50); Red Cell Distribution Width 14.9 % (11.5-14.5); Segmented Neutrophils % 75.6 %
[2017-09-15 05:02] LABS: Alanine Aminotransferase 9 Units/L (0-55); Albumin 2.5 g/dL (3.5-5.0); Alkaline Phosphatase 38 Units/L (38-126); Aspartate Amino Transferase 11 Units/L (5-34); BUN/Creatinine Ratio 27 (6-26); Bilirubin,Total 0.5 mg/dL (0.2-1.2); Calcium 7.9 mg/dL (8.6-10.8); Carbon Dioxide 22 mEq/L (19-29); Chloride 112 mEq/L (98-109); Globulin 2.5 g/dL (2.4-3.5); Glucose 115 mg/dL (70-99); Osmolality,Calculated 300 (280-300); Potassium 3.3 mEq/L (3.5-4.5); Sodium 143 mEq/L (136-145); eGFR For African Americans > 60 (> 60); eGFR For Non-African Americans > 60 (> 60)
[2017-09-15 05:08] LABS: Blood Urea Nitrogen 22 mg/dL (8-26)
[2017-09-15] MEDS: Lacri-Lube 3.5 GM TUBE BOTH EYES SCH ×3 (05:18→08:24)
[2017-09-15] MEDS ORDERED: Naloxone 0.4 MG/ML INJ IVP PRN (08:34)
--- NOTE | 2017-09-15 08:57 | Pulmonology Progress Note ---
<EneStevenson maya - Last Filed: 09/15/17 08:57> Date of Encounter: 09/15/17 Time of Encounter: 08:54 Assessment and Plan (1) Acute blood loss anemia Current Visit: Yes Status: Acute Secondary to lower esophageal ulceration. Hemoglobin has remained stable despite 4 units of packed red blood cells. Patient underwent urgent endoscopy at admission that revealed a large amount of fresh blood. Patient had repeat endoscopy yesterday that revealed no active bleeding or fresh blood but old blood within the stomach and ulcerations near the gastroesophageal junction. Bleeding appears to have stopped, we will continue to monitor. NG in place. (2) Gastrointestinal hemorrhage Current Visit: Yes Status: Acute Secondary to ulcerations at the GE junction in the setting of Pedraza's esophagus and lower esophageal ulceration. Endoscopy is completed yesterday as above. Transition to Protonix 40 mg IV twice a day, continue Carafate 4 times a day. Gastroenterology is following. Will start patient on clear liquid diet and advance as tolerated Qualifiers: GI bleed type/associated pathology: gastrointestinal hemorrhage with hematemesis Qualified Code(s): K92.0 - Hematemesis (3) Pedraza's esophagus determined by biopsy Current Visit: Yes Status: Acute (4) Lactic acidosis Current Visit: Yes Status: Acute (5) SIRS (systemic inflammatory response syndrome) Current Visit: Yes Status: Acute Subjective Principal diagnosis: Acute GI bleed Interval history: Patient seen and examined at bedside. He was successfully extubated yesterday. He reports a mild sore throat but otherwise has no complaints. He is tolerating oral medications well and states that he is hungry. Objective PUL Vital signs: Last Vital Signs Temp 100.0 F H 09/15/17 07:56 Pulse 105 09/15/17 08:00 Resp 18 09/15/17 08:00 BP 113/72 09/15/17 08:00 Pulse Ox 96 09/15/17 08:00 General appearance: no acute distress ENT: oropharynx moist Effort: normal Auscultation: bilateral: clear Cardiovascular: regular rate and rhythm Gastrointestinal: normoactive bowel sounds, soft, non-tender Extremities: no cyanosis, no edema, no clubbing normal mental status, non-focal exam Results - Laboratory Findings CBC and BMP: 09/15/17 04:24 09/15/17 04:24 ABG ABG pH 7.42 pH Units (7.32-7.45) 09/14/17 04:31 ABG pCO2 38 mmHg (35-45) 09/14/17 04:31 ABG pO2 154 mmHg (85-104) H 09/14/17 04:31 ABG O2 Saturation 99 % (95-98) H 09/14/17 04:31 PT/INR, D-dimer PT 13.2 Seconds (9.4-12.1) H 09/13/17 11:04 Abnormal lab findings: Abnormal lab results RBC 3.61 M/mcL (4.19-5.50) L 09/15/17 04:24 Hgb 9.9 g/dL (12.9-16.9) L 09/15/17 04:24 Hct 29.9 % (37.5-50.1) L 09/15/17 04:24 MCV 82.8 fL (83.0-100.0) L 09/15/17 04:24 MCH 27.4 pg (28.0-33.3) L 09/15/17 04:24 RDW 14.9 % (11.5-14.5) H 09/15/17 04:24 Nucleated RBCs/100 WBC 0.2 /100 WBC (0) H 09/15/17 04:24 PT 13.2 Seconds (9.4-12.1) H 09/13/17 11:04 APTT 25.7 Seconds (26.0-36.0) L 09/13/17 11:04 ABG pO2 154 mmHg (85-104) H 09/14/17 04:31 ABG O2 Saturation 99 % (95-98) H 09/14/17 04:31 Potassium 3.3 mEq/L (3.5-4.5) L 09/15/17 04:24 Chloride 112 mEq/L (98-109) H 09/15/17 04:24 BUN/Creatinine Ratio 27 (6-26) H 09/15/17 04:24 Glucose 115 mg/dL (70-99) H 09/15/17 04:24 POC Glucose 114 (58-89) H 09/15/17 00:06 Calcium 7.9 mg/dL (8.6-10.8) L 09/15/17 04:24 Serum Total Protein 5.0 g/dL (6.0-8.3) L 09/15/17 04:24 Albumin 2.5 g/dL (3.5-5.0) L 09/15/17 04:24 Albumin/Globulin Ratio 1.0 (1.1-2.2) L 09/15/17 04:24 Ur Specific [place] > 1.030 (1.010-1.025) H 09/13/17 14:35 Urine Glucose (UA) >=1000 mg/dL (Normal) H 09/13/17 14:35 Urine Ketones Trace mg/dL (Negative) H 09/13/17 14:35 - Clinical Findings Intake & Output: Intake & Output 09/14/17 09/15/17 09/15/17 23:59 07:59 15:59 Intake Total 300 / 300 300 / 300 100 / 100 Output Total 750 / 750 1475 / 1475 Balance -450 / -450 -1175 / -1175 100 / 100 Consult Discharge Plan - Plan Referrals: Anastacio Lamb DO [Primary Care Provider] - <Liliane Penaloza - Last Filed: 09/15/17 20:18> Date of Encounter: 09/15/17 Objective PUL Vital signs: Last Vital Signs Temp 98.9 F 09/15/17 16:23 Pulse 105 09/15/17 16:00 Resp 20 09/15/17 16:00 BP 113/74 09/15/17 16:00 Pulse Ox 95 09/15/17 16:00 Results - Laboratory Findings CBC and BMP: 09/15/17 04:24 09/15/17 04:24 ABG ABG pH 7.42 pH Units (7.32-7.45) 09/14/17 04:31 ABG pCO2 38 mmHg (35-45) 09/14/17 04:31 ABG pO2 154 mmHg (85-104) H 09/14/17 04:31 ABG O2 Saturation 99 % (95-98) H 09/14/17 04:31 PT/INR, D-dimer PT 13.2 Seconds (9.4-12.1) H 09/13/17 11:04 Abnormal lab findings: Abnormal lab results RBC 3.61 M/mcL (4.19-5.50) L 09/15/17 04:24 Hgb 9.9 g/dL (12.9-16.9) L 09/15/17 04:24 Hct 29.9 % (37.5-50.1) L 09/15/17 04:24 MCV 82.8 fL (83.0-100.0) L 09/15/17 04:24 MCH 27.4 pg (28.0-33.3) L 09/15/17 04:24 RDW 14.9 % (11.5-14.5) H 09/15/17 04:24 Nucleated RBCs/100 WBC 0.2 /100 WBC (0) H 09/15/17 04:24 PT 13.2 Seconds (9.4-12.1) H 09/13/17 11:04 APTT 25.7 Seconds (26.0-36.0) L 09/13/17 11:04 ABG pO2 154 mmHg (85-104) H 09/14/17 04:31 ABG O2 Saturation 99 % (95-98) H 09/14/17 04:31 Potassium 3.3 mEq/L (3.5-4.5) L 09/15/17 04:24 Chloride 112 mEq/L (98-109) H 09/15/17 04:24 BUN/Creatinine Ratio 27 (6-26) H 09/15/17 04:24 Glucose 115 mg/dL (70-99) H 09/15/17 04:24 POC Glucose 114 (58-89) H 09/15/17 00:06 Calcium 7.9 mg/dL (8.6-10.8) L 09/15/17 04:24 Serum Total Protein 5.0 g/dL (6.0-8.3) L 09/15/17 04:24 Albumin 2.5 g/dL (3.5-5.0) L 09/15/17 04:24 Albumin/Globulin Ratio 1.0 (1.1-2.2) L 09/15/17 04:24 Ur Specific [place] > 1.030 (1.010-1.025) H 09/13/17 14:35 Urine Glucose (UA) >=1000 mg/dL (Normal) H 09/13/17 14:35 Urine Ketones Trace mg/dL (Negative) H 09/13/17 14:35 - Clinical Findings Intake & Output: Intake & Output 09/15/17 09/15/17 09/15/17 07:59 15:59 23:59 Intake Total 300 / 300 150 / 150 Output Total 1475 / 1475 500 / 500 Balance -1175 / -1175 -350 / -350 - Attending Attestation I saw the patient with the resident agree with History and Physical exam findings. Labs and Radiology were reviewed SUPERVISOR INSPECTION AND TESTING: Patient is conscious oriented x3 following commands NECK : No JVD appreciated Pulmonary : Patient was extubated yesterday for airway protection for Acute GI bleed. Cardiac : Hemodynamically stable Nutrition/GI: Patient had multiple esophageal ulcerations s/p endoscopy , no signs of active bleeding , continue to monitor NG output , changed to IV PPI BID today Renal : Labs and output reviewed Heme onc : Acute blood loss of anemia secondary to GI bleed stable from yesterday ID : No active infectious issues Musculo skeletal / skin issues : No acute issues Disposition : To transfer to Medical telemetry Code status: Full code Family/POA:
[2017-09-15] MEDS ORDERED: Potassium Chloride Elixir 20 MEQ/15 ML UDC GTUBE ONE (11:42)
[2017-09-15] MEDS ORDERED: Chloraseptic Spray 177 ML BOTTLE MM PRN (12:08)
[2017-09-15] MEDS: Pantoprazole 40 MG VIAL IVP SCH (17:21)
[2017-09-16 03:06] LABS: Basophils % 0.3 %; Eosinophils # 0.1 K/mcL (0.0-0.6); Eosinophils % 1.3 %; Hematocrit 30.4 % (37.5-50.1); Hemoglobin 10.2 g/dL (12.9-16.9); Immature Granulocytes % 0.7 % (0-4); Lymphocytes # 1.9 K/mcL (0.6-4.6); Mean Corpuscular HGB Conc 33.6 g/dL (31.6-35.5); Mean Corpuscular Hemoglobin 27.9 pg (28.0-33.3); Mean Corpuscular Volume 83.3 fL (83.0-100.0); Mean Platelet Volume 10.2 fL (9.4-12.4); Monocytes # 0.9 K/mcL (0.0-1.3); Monocytes % 7.9 %; Nucleated Red Blood Cells 0.5 /100 WBC (0); Platelet Count 189 K/mcL (140-400); Red Blood Count 3.65 M/mcL (4.19-5.50); Red Cell Distribution Width 15.1 % (11.5-14.5); Segmented Neutrophils % 72.8 %
[2017-09-16 03:38] LABS: Alanine Aminotransferase 10 Units/L (0-55); Albumin 2.8 g/dL (3.5-5.0); Albumin/Globulin Ratio 0.9 (1.1-2.2); Alkaline Phosphatase 40 Units/L (38-126); Aspartate Amino Transferase 14 Units/L (5-34); BUN/Creatinine Ratio 16 (6-26); Bilirubin,Total 0.6 mg/dL (0.2-1.2); Blood Urea Nitrogen 12 mg/dL (8-26); Calcium 8.5 mg/dL (8.6-10.8); Carbon Dioxide 22 mEq/L (19-29); Chloride 110 mEq/L (98-109); Glucose 115 mg/dL (70-99); Osmolality,Calculated 293 (280-300); Sodium 141 mEq/L (136-145); Total Protein 5.8 g/dL (6.0-8.3); eGFR For African Americans > 60 (> 60); eGFR For Non-African Americans > 60 (> 60)
[2017-09-16] MEDS: Pantoprazole 40 MG VIAL IVP SCH (05:00)
[2017-09-16 09:29] VITALS: BP 131/83
--- NOTE | 2017-09-16 09:45 | Discharge Summary ---
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 Sucralfate [Carafate] 1 gm PO QIDAC #1 oral.susp Home Medications: Aspirin 81 mg PO DAILY 09/10/16 [History] Ranitidine HCl [Acid E Learning Designer] 150 mg PO HS 09/10/16 [History] Acetaminophen [Tylenol] 1,000 mg PO Q6HR PRN 10/27/16 [History] Ascorbate Calcium [Vitamin C] 500 mg PO DAILY 10/27/16 [History] Atorvastatin [Lipitor] 40 mg PO HS 10/27/16 [History] Metformin HCl [Metformin HCl ER] 1,000 mg PO DAILY 10/27/16 [History] Dulaglutide [Trulicity] 0.75 mg SQ WE 06/24/17 [History] Empagliflozin [Jardiance] 10 mg PO DAILY 06/24/17 [History] Fenofibrate Nanocrystallized [Tricor] 145 mg PO DAILY 06/24/17 [History] Pantoprazole Sodium 40 mg PO BID #60 tablet. 09/16/17 [Rx] Sucralfate [Carafate] 1 gm PO QIDAC #1 oral.susp 09/16/17 [Rx] Allergies/Adverse Reactions: 3 Allergy/AdvReac Type Severity Reaction Status Date / Time anesthesia - unsure which one AdvReac Vomiting Uncoded 06/17/17 08:20 Labs on day of discharge: Labs from last 24 hours 09/16/17 09/16/17 09/15/17 02:37 02:37 04:24 WBC 11.0 RBC 3.65 L Hgb 10.2 L Hct 30.4 L MCV 83.3 MCH 27.9 L MCHC 33.6 RDW 15.1 H Plt Count 189 MPV 10.2 Immature Gran % 0.7 Seg Neutrophils % 72.8 Lymphocytes % 17.0 Monocytes % 7.9 Eosinophils % 1.3 Basophils % 0.3 Neutrophils # 8.0 Lymphocytes # 1.9 Monocytes # 0.9 Eosinophils # 0.1 Basophils # 0.0 Nucleated RBCs/100 WBC 0.5 H Sodium 141 Potassium 4.0 Chloride 110 H Carbon Dioxide 22 BUN 12 D Creatinine 0.76 Est GFR ( Amer) > 60 Est GFR (Non-Af Amer) > 60 BUN/Creatinine Ratio 16 Glucose 115 H Calculated Osmolality 293 Calcium 8.5 L Magnesium 1.6 Total Bilirubin 0.6 AST 14 ALT 10 Alkaline Phosphatase 40 Serum Total Protein 5.8 L Albumin 2.8 L Globulin 3.0 Albumin/Globulin Ratio 0.9 L - Impressions ITS Impressions Chest X-Ray 09/13/17 14:28 IMPRESSION: Stable cardiomegaly. Low lung volumes. Mild pulmonary vascular congestion. D/ / Mason Lawton MD / Mason Lawton MD Interpreting Provider: Mason Lawton MD Date of admission: 09/13/17 14:12 Primary care physician: Maite German Discharging clinician: Stevenson Felix Anticipated date of discharge: 09/16/17 - Patient Status Disposition: Home, Self-Care Condition: Fair Functional capacity at discharge: independent ambulation Overall status at discharge: patient is back to baseline - Discharge Instructions Follow Up With: Jason Latham MD [Partnered Physician] - (2 weeks) Anastacio Lamb DO [Primary Care Provider] - 09/26/17 12:00 pm (1 week) Melinda Perez MD [Partnered Physician] - 10/03/17 2:40 am - Diet and Activity Activity: increase activity as tolerated Diet: diabetic diet - Hospital Course Hospital course: Mr. Banks is a 37 year old male with history of Pedraza's esophagus presented with hematemesis. Patient had a large amount of hematemesis and was intubated for airway protection. Patient underwent urgent endoscopy which found a large amount of fresh blood in the lower esophagus and stomach. Patient remained on mechanical ventilation overnight and was rescoped the next day and they found ulcerations of the lower esophageal sphincter and all blood within the stomach but no new active bleeding. An NG was placed and the patient was successfully extubated. NG was left in place to monitor for any resumption of bleeding which the patient did not have any. Patient's diet was advanced slowly and he tolerated this well. Patient will be discharged home in stable condition. - Time Spent with Patient Total time spent providing and/or coordinating discharge services: Physical Examination Vital Signs: Vital Signs, Last 4 Hours Temp Pulse Resp BP Pulse Ox 09/16/17 09:00 100 18 131/83 96 09/16/17 08:00 106 20 141/94 96 09/16/17 07:24 98.6 F 09/16/17 07:00 97 18 122/81 96 General appearance: no acute distress ENT: oropharynx moist Effort: normal Auscultation: bilateral: clear Cardiovascular: regular rate and rhythm Gastrointestinal: normoactive bowel sounds, soft, non-tender, non-distended Extremities: no cyanosis, no edema, no clubbing normal mental status, non-focal exam - VTE Documentation of Mechanical Device: Intermittent pneumatic compression device <Liliane Penaloza S - Last Filed: 09/16/17 16:24> Date of Encounter: 09/16/17 Labs on day of discharge: Labs from last 24 hours 09/16/17 09/16/17 02:37 02:37 WBC 11.0 RBC 3.65 L Hgb 10.2 L Hct 30.4 L MCV 83.3 MCH 27.9 L MCHC 33.6 RDW 15.1 H Plt Count 189 MPV 10.2 Immature Gran % 0.7 Seg Neutrophils % 72.8 Lymphocytes % 17.0 Monocytes % 7.9 Eosinophils % 1.3 Basophils % 0.3 Neutrophils # 8.0 Lymphocytes # 1.9 Monocytes # 0.9 Eosinophils # 0.1 Basophils # 0.0 Nucleated RBCs/100 WBC 0.5 H Sodium 141 Potassium 4.0 Chloride 110 H Carbon Dioxide 22 BUN 12 D Creatinine 0.76 Est GFR ( Amer) > 60 Est GFR (Non-Af Amer) > 60 BUN/Creatinine Ratio 16 Glucose 115 H Calculated Osmolality 293 Calcium 8.5 L Total Bilirubin 0.6 AST 14 ALT 10 Alkaline Phosphatase 40 Serum Total Protein 5.8 L Albumin 2.8 L Globulin 3.0 Albumin/Globulin Ratio 0.9 L - Impressions ITS Impressions Chest X-Ray 09/13/17 14:28 IMPRESSION: Stable cardiomegaly. Low lung volumes. Mild pulmonary vascular congestion. D/ / Mason Lawton MD / Mason Lawton MD Interpreting Provider: Mason Lawton MD Date of admission: 09/13/17 14:12 Primary care physician: Maite German - Hospital Course Hospital course: Mr. Banks is a 37 year old male - Time Spent with Patient Total time spent providing and/or coordinating discharge services: - Attending Attestation I reviewed the resident documentation regarding the hospital course ,i personally examined him and his acute blood loss anemia which is secondary to esophageal ulcerations his blood hb was stable and he was hemodynamically stable over 48 hrs he was discharged on PPI BID and PCP , Gastroenterology follow up. I spent 40 minutes in coordinating his Discharge.
== END 2017-09-16 12:15 | disposition home or self-care (01) | DRG 381 ==
LOC: EMEROO 10:54 → 3ANU 10:54 → ICNU 11:55
PROVIDERS: ADMIT Internal Medicine; ATTEND Student in an Organized Health Care Education/Training Program